=== PATIENT | male | born 1985 | race Caucasian/White ===

== ENCOUNTER 2018-09-06 19:00 | Emergency (ER) | payer OTHER | END 2018-09-06 19:57 | disposition home or self-care (01) | LOC: FER 19:00 ==

== ENCOUNTER 2019-11-30 15:57 | Emergency (ER) | payer OTHER ==
[2019-11-30 16:09] VITALS: BP 140/99; PULSE 74; TEMP 98; BMI 27.3
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
[2019-11-30] MEDS ORDERED: ACETAMINOPHEN 1000 MG/100 ML VIAL (NON FORMULARY) IVPB ONE (17:18)
[2019-11-30] MEDS ORDERED: SODIUM CHLORIDE 0.9% 500 ML INFUS.BAG IV ONE (17:18)
[2019-11-30] MEDS ORDERED: ACETAMINOPHEN INJECTION 100 ML IVPB ONE (17:41)
[2019-11-30 17:57] LABS: BASO % 1.2 % (0-2.0); EOS % 1.9 % (0-4.5); HEMATOCRIT 49.4 % (35.4-49); HEMOGLOBIN 16.8 GM/dl (11.7-16.9); LYMPH % 22.3 % (8-40); MCH 30.8 pg (25.7-33.7); MCHC 33.9 g/dl (32.0-35.9); MEAN CELL VOLUME 90.9 fl (80-96); MEAN PLT VOLUME 8.4 fl (7.5-11.1); MONO % 7.9 % (3.8-10.2); NEUT % 66.7 % (42.8-82.8); PLATELET COUNT 170 K/MM3 (134-434); RBC 5.43 M/mm3 (4.00-5.60); RDW 12.6 % (11.9-15.9); WHITE BLOOD COUNT 4.9 K/mm3 (4.0-10.8)
[2019-11-30 18:05] LABS: ALBUMIN 4.4 g/dl (3.4-5.0); BILIRUBIN,TOTAL 0.9 mg/dl (0.2-1); CALCIUM 9.1 mg/dl (8.5-10); POTASSIUM 3.7 mmol/L (3.5-5.1); TOT PROT 7.5 g/dl (6.4-8.2)
--- NOTE | 2019-11-30 18:45 | PDOC ---
Attending Attestation - Resident Resident Name: Chinmay Seymour - ED Attending Attestation I have performed the following: I have examined & evaluated the patient, The case was reviewed & discussed with the resident, I agree w/resident's findings & plan, Exceptions are as noted - HPI HPI: 11/30/19 18:42 Generalized weakness, fatigue, lethargy for several days. No respiratory or abdominal symptoms. Heavy drinker. - Physicial Exam PE: 11/30/19 18:43 Alert and oriented no acute distress cooperative Afebrile, vital signs normal ENT clear Lungs clear Cardiac normal Abdomen soft and nontender. No organomegaly. Skin turgor adequate but mucous membranes dry. Labs show minimal elevation of LFTs but no white count or other significant abnormalities - Medical Decision Making 11/30/19 18:44 Assessment: Dehydration, alcohol abuse Plan: Patient responded well to intravenous hydration and Tylenol. Symptoms rapidly subsided and to continue hydration and Tylenol as needed, try to limit alcohol consumption. Tested for COVID. To isolate until results are available. Fully ambulatory, asymptomatic at discharge to follow-up as directed 12/02/19 10:41 Discharge - Discharge Information Problems reviewed: Yes Clinical Impression/Diagnosis: Dehydration, Alcohol abuse Condition: Improved Disposition: HOME - Admission No - Follow up/Referral Referrals: [facility] [Provider Group] - Patient Discharge Instructions Additional Instructions: You were seen in the ER for weakness and lightheadedness. Your physical exam and labs did not show any emergent problem. Your labs did show a mild elevation in your liver tests. You should follow up about this with a primary care doctor. We also tested you for Covid-19, and if it is positive, you should receive a call in the next few days. Please return to the ER for new, continued, or worsening symptoms. - Post Discharge Activity
== END 2019-11-30 18:45 | disposition home or self-care (01) ==
LOC: FER 15:57
PROC: 3E0333Z Introduction of Anti-inflammatory into Peripheral Vein, Percutaneous Approach (ICD-10-PCS; principal; 2019-11-30)
DX: R42 Dizziness and giddiness (principal); F10.20 Alcohol dependence, uncomplicated; E86.0 Dehydration
CPT/HCPCS: 36415; 80053; 85025; 99284-25; J0131; U0003

== ENCOUNTER 2022-09-11 21:29 | Emergency (ER) | payer OTHER ==
[2022-09-11] MEDS ORDERED: morphine CARPU-JECT 2 MG/1 ML DISP.SYRIN IVPUSH ONE (21:41)
[2022-09-11] MEDS ORDERED: SODIUM CHLORIDE 1,000 ML IV ONE (21:41)
[2022-09-11 21:44] VITALS: BP 134/90; PULSE 82; RESP 16; TEMP 98.8; BMI 26.6
[2022-09-11 22:14] LABS: HEMATOCRIT 48.3 % (35.4-49); HEMOGLOBIN 16.5 G/dL (11.7-16.9); MCH 30.2 pg (25.7-33.7); MCHC 34.2 g/dl (32.0-35.9); MEAN CELL VOLUME 88.3 fl (80-96); MEAN PLT VOLUME 8.9 fl (7.5-11.1); PLATELET COUNT 161.2 10^3/uL (134-434); RBC 5.47 10^6/uL (4.00-5.60); WHITE BLOOD COUNT 9.4 10^3/uL (4.0-10.8)
[2022-09-11 22:18] LABS: INR 1.06 (0.83-1.09); PROTHROMBIN TIME (PATIENT) 12.3 SEC (9.7-13.0)
[2022-09-11 22:23] LABS: ALBUMIN 4.4 g/dl (3.4-5.0); BILIRUBIN,TOTAL 0.5 mg/dl (0.2-1); BLOOD UREA NITROGEN 24.6 mg/dl (7-18); CALCIUM 9.4 mg/dl (8.5-10.1); POTASSIUM 4.3 mmol/L (3.5-5.1); SGOT/AST 14.9 U/L (15-37); SGPT/ALT 19.1 U/L (7-52); TOT PROT 6.5 g/dl (6.4-8.2)
== END 2022-09-11 23:30 | disposition left against medical advice (07) ==
LOC: FER 21:29
PROC: 3E0337Z Introduction of Electrolytic and Water Balance Substance into Peripheral Vein, Percutaneous Approach (ICD-10-PCS; principal; 2022-09-11)
DX: R10.30 Lower abdominal pain, unspecified (principal)
CPT/HCPCS: 36415; 80053; 81003; 83690; 85027; 85610; 99284-25

== ENCOUNTER 2023-10-16 22:26 | Emergency (ER) | payer SELFPAY ==
[2023-10-16 22:31] VITALS: BP 121/78; PULSE 75; RESP 18; TEMP 98.2; BMI 25.8
== END 2023-10-16 23:49 | disposition home or self-care (01) ==
LOC: JER 22:26
DX: K59.00 Constipation, unspecified (principal); R10.9 Unspecified abdominal pain
CPT/HCPCS: 99282-25